=== PATIENT | female | born 1975 ===

== ENCOUNTER 2022-04-26 16:46 | Inpatient (IN) | payer SELFPAY ==
[~2022-04-26] VITALS: Ht 145 cm; Wt 50.0 kg
--- NOTE | 2022-04-26 17:26 | ED General ---
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 She denies cough, vomiting, or shortness of breath. She presented to the [facility] where she had flu and COVID testing performed. These tests were reportedly negative. She was then referred to the emergency room. She is noted to be tachycardic with a heart rate in the 120s and febrile with a temperature of 38.6 on initial exam. She is Icelandic-speaking only and requires lang interpreter services. (NEETU DRIVER MD) Allergies and Home Medications Allergies Coded Allergies: No Known Drug Allergies (Unverified , 04/26/22) Patient Home Medication List Home Medication List Reviewed: Yes (NEETU DRIVER MD) Home Medication List Reviewed: Yes (ROLANDO SHER DO) Review of Systems Review of Systems Constitutional: see HPI EENTM: no symptoms reported Respiratory: see HPI Cardiovascular: see HPI Gastrointestinal: see HPI Genitourinary: no symptoms reported : No Musculoskeletal: no symptoms reported Skin: no symptoms reported Psychiatric/Neurological: No Symptoms Reported Hematologic/Lymphatic: No Symptoms Reported Immunological/Allergic: no symptoms reported (NEETU DRIVER MD) Past Azwxckg-Wculfw-Bfyhzc Hx Patient Social History Tobacco Use?: No Substance use?: No Alcohol Use?: Yes Alcohol type: Beer Alcohol Frequency: Once in a while (NEETU DRIVER MD) Immunizations Up To Date First/Initial COVID19 Vaccinat: UNKNOWN 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 (NEETU DRIVER MD) Past Medical History Surgeries: Yes Orthopedic (Hand/arm), Tubal Ligation Respiratory: No Cardiac: No Neurological: No : No Last Menstrual Period: Apr 18, 2022 Reproductive Disorders: No Genitourinary: No Gastrointestinal: No Musculoskeletal: No Endocrine: Yes Hypothyroidsim HEENT: No Cancer: No Psychosocial: No Integumentary: No (NEETU DRIVER MD) Physical Exam Vital Signs Vital Signs - First Documented 04/26/22 17:00 Temp 38.6 Pulse 123 Resp 16 B/P (MAP) 125/82 (96) Pulse Ox 97 O2 Delivery Room Air (ROLANDO SHER DO) Vital Signs Capillary Refill : Less Than 3 Seconds (NEETU DRIVER MD) Height, Weight, BMI Height: '" Weight: lbs. oz. kg; 22.00 BMI Method: General Appearance: No Apparent Distress, WD/WN HEENT: Normal ENT Inspection, Pharynx Normal Neck: Normal Inspection; No JVD Respiratory: Lungs Clear, Normal Breath Sounds, No Accessory Muscle Use Cardiovascular: No Edema, No Murmur, Tachycardia Gastrointestinal: Normal Bowel Sounds, Soft; No Distended; Tenderness (Mild, generalized) Extremity: Normal Inspection, No Pedal Edema Neurologic/Psychiatric: Alert, Oriented x3, No Motor/Sensory Deficits, Normal Mood/Affect, emergency doctor II-XII Norm as Tested Skin: Normal Color, Warm/Dry (NEETU DRIVER MD) Focused Exam Sepsis Stage: Sepsis Possible Source: Other ( AND GI) Lactate Level 04/26/22 17:36: Lactic Acid Level 1.33 (ROLANDO SHER DO) Time of Focused Exam: 19:45 Respiratory: Normal Breath Sounds, No Accessory Muscle Use, No Respiratory Distress Cardiovascular: Tachycardia Capillary Refill: Less Than 3 Seconds Skin: normal color (PT IS ) Lactic Acid Level Laboratory Tests Test 04/26/22 17:36 Lactic Acid Level 1.33 MMOL/L (0.50-2.00) (ROLANDO SHER DO) Within 3hrs of presentation: Admin fluids, Admin ABX, Blood cultures prior to ABX's, Focus exam, Lactate level (ROLANDO SHER DO) Progress/Results/Core Measures Suspected Sepsis SIRS Temperature: Pulse: 123 Respiratory Rate: 16 Laboratory Tests 04/26/22 17:36: White Blood Count 11.5H Blood Pressure 125 /82 Mean: 96 04/26/22 17:36: Lactic Acid Level 1.33 Laboratory Tests 04/26/22 17:36: Creatinine 0.79, INR Comment 1.1, Platelet Count 186, Total Bilirubin 0.5 (NEETU DRIVER MD) Results/Orders Lab Results Laboratory Tests Test 04/26/22 17:24 04/26/22 17:36 04/26/22 17:42 Range/Units Influenza Type A (RT-PCR) Not Detected Not Detecte Influenza Type B (RT-PCR) Not Detected Not Detecte SARS-CoV-2 RNA (RT-PCR) Not Detected Not Detecte White Blood Count 11.5 H 4.3-11.0 10^3/uL Red Blood Count 4.79 3.80-5.11 10^6/uL Hemoglobin 14.5 11.5-16.0 g/dL Hematocrit 42 35-52 % Mean Corpuscular Volume 88 80-99 fL Mean Corpuscular Hemoglobin 30 25-34 pg Mean Corpuscular Hemoglobin Concent 35 32-36 g/dL Red Cell Distribution Width 12.7 10.0-14.5 % Platelet Count 186 130-400 10^3/uL Mean Platelet Volume 11.0 9.0-12.2 fL Immature Granulocyte % (Auto) 1 % Neutrophils (%) (Auto) 91 H 42-75 % Lymphocytes (%) (Auto) 5 L 12-44 % Monocytes (%) (Auto) 3 0-12 % Eosinophils (%) (Auto) 0 0-10 % Basophils (%) (Auto) 0 0-10 % Neutrophils # (Auto) 10.4 H 1.8-7.8 10^3/uL Lymphocytes # (Auto) 0.6 L 1.0-4.0 10^3/uL Monocytes # (Auto) 0.4 0.0-1.0 10^3/uL Eosinophils # (Auto) 0.0 0.0-0.3 10^3/uL Basophils # (Auto) 0.0 0.0-0.1 10^3/uL Immature Granulocyte # (Auto) 0.1 0.0-0.1 10^3/uL Neutrophils % (Manual) 88 % Lymphocytes % (Manual) 4 % Monocytes % (Manual) 3 % Eosinophils % (Manual) 0 % Basophils % (Manual) 0 % Band Neutrophils 5 % Blood Morphology Comment NORMAL Prothrombin Time 14.3 12.2-14.7 SEC INR Comment 1.1 0.8-1.4 Activated Partial Thromboplast Time 31 24-35 SEC Sodium Level 130 L 135-145 MMOL/L Potassium Level 3.0 L 3.6-5.0 MMOL/L Chloride Level 97 L 98-107 MMOL/L Carbon Dioxide Level 21 21-32 MMOL/L Anion Gap 12 5-14 MMOL/L Blood Urea Nitrogen 6 L 7-18 MG/DL Creatinine 0.79 0.60-1.30 MG/DL Estimat Glomerular Filtration Rate 92 BUN/Creatinine Ratio 8 Glucose Level 103 70-105 MG/DL Lactic Acid Level 1.33 0.50-2.00 MMOL/L Calcium Level 9.3 8.5-10.1 MG/DL Corrected Calcium 9.0 8.5-10.1 MG/DL Magnesium Level 1.9 1.6-2.4 MG/DL Total Bilirubin 0.5 0.1-1.0 MG/DL Aspartate Amino Transf (AST/SGOT) 22 5-34 U/L Alanine Aminotransferase (ALT/SGPT) 18 0-55 U/L Alkaline Phosphatase 96 40-136 U/L C-Reactive Protein High Sensitivity 17.17 H 0.00-0.50 MG/DL Total Protein 8.1 6.4-8.2 GM/DL Albumin 4.4 3.2-4.5 GM/DL Lipase 9 8-78 U/L Urine Color YELLOW Urine Clarity CLOUDY Urine pH 7.0 5-9 Urine Specific [place] 1.015 L 1.016-1.022 Urine Protein TRACE H NEGATIVE Urine Glucose (UA) NEGATIVE NEGATIVE Urine Ketones 1+ H NEGATIVE Urine Nitrite POSITIVE H NEGATIVE Urine Bilirubin NEGATIVE NEGATIVE Urine Urobilinogen 0.2 < = 1.0 MG/DL Urine Leukocyte Esterase 1+ H NEGATIVE Urine RBC (Auto) 1+ H NEGATIVE Urine RBC RARE /HPF Urine WBC 10-25 H /HPF Urine Squamous Epithelial Cells 0-2 /HPF Urine Crystals NONE /LPF Urine Bacteria LARGE H /HPF Urine Casts NONE /LPF Urine Mucus NEGATIVE /LPF Urine Culture Indicated YES (ROLANDO SHER DO) My Orders Orders - ROLANDO SHER DO Acetaminophen Tablet (Tylenol Tablet) (04/26/22 19:45) Ibuprofen Tablet (Motrin Tablet) (04/26/22 19:45) Ed Admission (Communication) (04/26/22 19:51) (ROLANDO SHER DO) Medications Given in ED Current Medications Medications Dose Ordered Sig/Bhumi Route Start Time Stop Time Status Last Admin Dose Admin Acetaminophen 1,000 mg ONCE ONCE PO 04/26/22 19:45 04/26/22 19:46 DC 04/26/22 19:38 1,000 MG Fentanyl Citrate 50 mcg ONCE ONCE IVP 04/26/22 17:30 04/26/22 17:31 DC 04/26/22 17:56 50 MCG Hyoscyamine Sulfate 0.25 mg ONCE ONCE SL 04/26/22 17:30 04/26/22 17:31 DC 04/26/22 17:55 0.25 MG Ibuprofen 800 mg ONCE ONCE PO 04/26/22 19:45 04/26/22 19:46 DC 04/26/22 19:38 800 MG Iohexol 100 ml ONCE ONCE IV 04/26/22 19:15 04/26/22 19:16 DC 04/26/22 19:30 49 ML Lactated Ringer's 1,000 ml @ 0 mls/hr Q0M ONCE IV 04/26/22 17:30 04/26/22 17:31 DC 04/26/22 17:55 1,000 MLS/HR Potassium Chloride 50 ml @ 50 mls/hr ONCE ONCE IV 04/26/22 19:15 04/26/22 20:14 DC 04/26/22 19:29 50 MLS/HR Sodium Chloride 100 ml ONCE ONCE IV 04/26/22 19:15 04/26/22 19:16 DC 04/26/22 19:30 80 ML (ROLANDO SHER DO) Vital Signs/I&O 04/26/22 04/26/22 04/26/22 17:00 19:38 19:38 Temp 38.6 38.6 38.6 Pulse 123 Resp 16 B/P (MAP) 125/82 (96) Pulse Ox 97 O2 Delivery Room Air 04/27/22 00:00 Intake Total 1050 ml Balance 1050 ml (ROLANDO SHER DO) Vital Signs/I&O Capillary Refill : Less Than 3 Seconds (NEETU DRIVER MD) Blood Pressure Mean: 96 Progress Note #1: Time: 18:39 Progress Note Patient was interviewed and examined with the assistance of the lang interpreter. She is being hydrated with IV fluids. We are confirming the viral swabs with repeats here. Pain is being treated with fentanyl. Levsin was given for the cramping. Work-up with CBC, CMP, and urinalysis reveals leukocytosis, elevated CRP, and pyuria. Patient likely has pyelonephritis. I intend to obtain a CT of the abdomen and pelvis after the viral swabs are confirmed to ensure there is no obstructive uropathy contributing to the pyelonephritis. Progress Note #2: Time: 19:15 Progress Note Patient is agreeable to CT scan. Plan is to admit at [facility] for treatment of sepsis and pyelonephritis as long as there are no uropathy's that require transfer to urology services. Patient is still having some residual pain and would like further treatment. Morphine 4 mg IV was ordered. Potassium replacement will be provided via IV route along with a liter of normal saline. Plan was explained to patient and family using the lang interpreter services. Care is now being transitioned to Dr. SHER. (NEETU DRIVER MD) Progress Note : Progress Note 191--ASSUMED CARE OF PT FROM DR. DRIVER AT SHIFT CHANGE. CT IS PENDING. PT HAS HAD PAIN MEDICATION, AND IV ANTIBIOTICS TYLENOL AND MOTRIN WERE GIVEN FOR FEVER OF 101.4 ADDITIONAL IV FLUIDS ORDERED. REVIEWED TEST RESULTS AND NEED FOR ADMIT WITH PT. NO DETERIORATION IN PT'S CONDITION DURING ER STAY. VITALS STABLE AT TIME OF ADMIT. BP > 100 SYSTOLIC, HR REMAINS AROUND 120. O2 SATS 100% ON ROOM AIR. SEPSIS PROTOCOL HAS BEEN INITIATED AND FOCUS EXAM HAS BEEN DONE. PT HAS NOT HAD ANY PRIOR VISITS HERE. (ROLANDO SHER DO) Diagnostic Imaging Comments CT ABDOMEN/PELVIS--PER RADIOLOGIST REPORT AT 1946 FINDINGS: There is partly formed and partly liquid stools in the colon diffusely. There is thickening of the langley of the colon diffusely. There is no sigmoidal thickening. There is very mild pericolonic stranding adjacent to the thickened segments consistent with nonspecific colitis. No perforation or overt bowel obstruction. No pneumatosis. No free gas. There is likely uterine fibroid disease at its fundus. No acute adnexal abnormality. Liver, gallbladder, bile ducts, spleen, adrenals, pancreas and unobstructed kidneys are normal. IMPRESSION: 1. Pancolitis without obstruction, perforation or abscess. Unremarkable small bowel. 2. Unobstructed urinary tracts with no hepatobiliary abnormality. 3. Probable uterine fibroids with no acute adnexal or urinary bladder pathology. 4. No findings to suggest pyelonephritis or other acute urinary tract pathology. (ROLANDO SHER DO) Departure Communication (Admissions) 1947--SPOKE WITH DR. MENDES, HOSPITALIST FOR [facility]. ACCEPTS PT FOR ADMIT. SHE WILL DO ADMIT ORDERS. WILL CONSULT DR. KIRBY. 1953--SPOKE WITH DR. KIRBY, SURGEON, AND INFORMED HIM OF CONSULT. (ROLANDO SHER DO) Impression Primary Impression: Sepsis Qualified Codes: A41.9 - Sepsis, unspecified organism Additional Impressions: Pyelonephritis Abdominal pain Qualified Codes: R10.84 - Generalized abdominal pain Hypokalemia Colitis Hyponatremia Disposition: ADMITTED INPATIENT Condition: Stable Admissions Decision to Admit Reason: Admit from ER (General) Decision to Admit/Date: Apr 26, 2022 (NEETU DRIVER MD) Time/Decision to Admit Time: 19:50 (ROLANDO SHER DO) Departure-Patient Inst. Referrals: [facility] (PCP/Family) Primary Care Physician NEETU DRIVER MD Apr 26, 2022 17:26 ROLANDO SHER DO Apr 26, 2022 19:31
[2022-04-26] MEDS ORDERED: LACTATED RINGERS 1,000 ML IV ONE ×2 (17:30→20:30)
[2022-04-26] MEDS ORDERED: HYOSCYAMINE 0.125 MG (LEVSIN) TAB SL ONE (17:30)
[2022-04-26] MEDS ORDERED: fentaNYL INJ 100 MCG/2 ML AMP IVP ONE (17:30)
[2022-04-26 17:44] LABS: BASOPHILS % (AUTO) 0 % (0-10); EOSINOPHILS % (AUTO) 0 % (0-10); HEMATOCRIT 42 % (35-52); HEMOGLOBIN 14.5 g/dL (11.5-16.0); LYMPHOCYTES # (AUTO) 0.6 10^3/uL (1.0-4.0); LYMPHOCYTES % (AUTO) 5 % (12-44); MEAN CORPUSCULAR HEMOGLOBIN 30 pg (25-34); MEAN CORPUSCULAR HGB CONC 35 g/dL (32-36); MEAN CORPUSCULAR VOLUME 88 fL (80-99); MONOCYTES # (AUTO) 0.4 10^3/uL (0.0-1.0); MONOCYTES % (AUTO) 3 % (0-12); NEUTROPHILS # (AUTO) 10.4 10^3/uL (1.8-7.8); NEUTROPHILS % (AUTO) 91 % (42-75); PLATELET COUNT 186 10^3/uL (130-400); WHITE BLOOD COUNT 11.5 10^3/uL (4.3-11.0)
[2022-04-26 17:47] LABS: BILIRUBIN,URINE NEGATIVE (NEGATIVE); CLARITY,URINE CLOUDY; COLOR,URINE YELLOW; GLUCOSE, URINE (UA) NEGATIVE (NEGATIVE); KETONES,URINE 1+ (NEGATIVE); LEUKOCYTE ESTERASE ,URINE 1+ (NEGATIVE); NITRITE,URINE POSITIVE (NEGATIVE); PROTEIN,URINE TRACE (NEGATIVE)
[2022-04-26 17:54] LABS: BACTERIA,URINE LARGE /HPF; RBC,URINE RARE /HPF; SQUAMOUS EPITHELIAL CELL,UR 0-2 /HPF
[2022-04-26 17:56] LABS: ALBUMIN 4.4 GM/DL (3.2-4.5)
[2022-04-26 17:58] LABS: CALCIUM 9.3 MG/DL (8.5-10.1)
[2022-04-26 17:59] LABS: BAND NEUTROPHILS 5 %; BASOPHILS % (MANUAL) 0 %; EOSINOPHILS % (MANUAL) 0 %; LYMPHOCYTES % (MANUAL) 4 %; MONOCYTES % (MANUAL) 3 %; NEUTROPHILS % (MANUAL) 88 %; RBC MORPH NORMAL; TOTAL PROTEIN 8.1 GM/DL (6.4-8.2)
[2022-04-26 18:01] LABS: BILIRUBIN,TOTAL 0.5 MG/DL (0.1-1.0)
[2022-04-26 18:03] LABS: CREATININE SERUM 0.79 MG/DL (0.60-1.30)
[2022-04-26 18:05] LABS: MAGNESIUM 1.9 MG/DL (1.6-2.4)
[2022-04-26] MEDS ORDERED: cefTRIAXone 1 GM PRE-MIX 50 ML IV STA (18:18)
[2022-04-26 18:33] LABS: INR 1.1 (0.8-1.4); PROTHROMBIN TIME PATIENT 14.3 SEC (12.2-14.7)
--- NOTE | 2022-04-26 18:52 | Diagnostic Imaging Report ---
INDICATION: Chest pain. COMPARISON: None. FINDINGS: The lungs are clear. No failure, effusion or pneumothorax. IMPRESSION: Negative. Dictated by: Dictated on workstation # [id number]
[2022-04-26] MEDS ORDERED: morphine INJ 10 MG/ML 1ML (SYR OR VIAL) IVP STA (19:12)
[2022-04-26] MEDS ORDERED: POTASSIUM CL 10MEQ/50ML IVPB 50 ML IV ONE (19:15)
[2022-04-26] MEDS ORDERED: IOHEXOL 350 MG/ML 100 ML (OMNIPAQUE 350) VIAL IV ONE (19:15)
[2022-04-26] MEDS ORDERED: NS IV 1000 ML 1,000 ML IV SCH (19:15)
[2022-04-26] MEDS ORDERED: HOLD METFORMIN - RECEIVED CONTRAST 20 ML VIAL IV SCH (19:15)
[2022-04-26] MEDS ORDERED: NS 100 ML (IVPB) BAG IV ONE (19:15)
--- NOTE | 2022-04-26 19:43 | Diagnostic Imaging Report ---
PROCEDURE: CT abdomen and pelvis with contrast. TECHNIQUE: Multiple contiguous axial images were obtained through the abdomen and pelvis after administration of intravenous contrast. Auto Exposure Controls were utilized during the CT exam to meet ALARA standards for radiation dose reduction. All CT scans use one or more of the following dose optimizing techniques: automated exposure control, MA and/or KvP adjustment based on patient size and exam type or iterative reconstruction. INDICATION: Fever, diarrhea, back pain, headache. COMPARISON: None. FINDINGS: There is partly formed and partly liquid stools in the colon diffusely. There is thickening of the langley of the colon diffusely. There is no sigmoidal thickening. There is very mild pericolonic stranding adjacent to the thickened segments consistent with nonspecific colitis. No perforation or overt bowel obstruction. No pneumatosis. No free gas. There is likely uterine fibroid disease at its fundus. No acute adnexal abnormality. Liver, gallbladder, bile ducts, spleen, adrenals, pancreas and unobstructed kidneys are normal. IMPRESSION: 1. Pancolitis without obstruction, perforation or abscess. Unremarkable small bowel. 2. Unobstructed urinary tracts with no hepatobiliary abnormality. 3. Probable uterine fibroids with no acute adnexal or urinary bladder pathology. 4. No findings to suggest pyelonephritis or other acute urinary tract pathology. Dictated on workstation # [id number]
[2022-04-26] MEDS ORDERED: ACETAMINOPHEN 500 MG TAB (TYLENOL) PO ONE (19:45)
[2022-04-26] MEDS ORDERED: IBUPROFEN 800 MG (MOTRIN) TAB PO ONE (19:45)
[2022-04-26 21:08] VITALS: BP 98/55
[2022-04-26] MEDS ORDERED: LACTULOSE SYRUP 10GM/15ML (ENULOSE) 30ML UDC PO PRN (21:15)
[2022-04-26] MEDS ORDERED: HYDROmorphone 2 MG/ML VIAL (DILAUDID) IV PRN (21:15)
[2022-04-26] MEDS ORDERED: polyethylene glycoL POWDER 17 GM (MIRALAX) PACK PO PRN (21:15)
[2022-04-26] MEDS ORDERED: LORazepam INJ 2 MG/ML (ATIVAN) VIAL IVP PRN (21:15)
[2022-04-26] MEDS ORDERED: CALCIUM CARBONATE 500 MG (TUMS) TAB.CHEW PO PRN (21:15)
[2022-04-26] MEDS ORDERED: ACETAMINOPHEN 325 MG TABLET PO PRN (21:15)
[2022-04-26] MEDS ORDERED: KETOROLAC 15 MG/ML VIAL IV PRN (21:15)
[2022-04-26] MEDS ORDERED: LORazepam 0.5 MG (ATIVAN) TABLET PO PRN (21:15)
[2022-04-26] MEDS ORDERED: diphenhydrAMINE 50 MG/ML INJ (BENADRYL) IVP PRN (21:15)
[2022-04-26] MEDS ORDERED: diphenhydrAMINE 25 MG TAB (BENADRYL) PO PRN (21:15)
[2022-04-26] MEDS ORDERED: BISACODYL 10 MG SUPP (DULCOLAX) PR PRN (21:15)
[2022-04-26] MEDS ORDERED: ANTACID SUSP 30 ML UDC (MYLANTA) PO PRN (21:15)
[2022-04-26] MEDS ORDERED: ONDANSETRON 4 MG/2 ML (SDV) Z0FRAN IV PRN (21:15)
[2022-04-26] MEDS ORDERED: MELATONIN 3 MG TABLET PO PRN (21:15)
[2022-04-26] MEDS ORDERED: ONDANSETRON 4 MG (ZOFRAN) ORAL DISSOLVE TAB PO PRN (21:15)
[2022-04-26] MEDS ORDERED: MILK OF MAGNESIA 400 MG/5 ML 30 ML UDC PO PRN (21:15)
[2022-04-26 21:26] VITALS: BP 125/82
[2022-04-26] MEDS: IBUPROFEN 600 MG (MOTRIN) TAB PO SCH (22:01)
[2022-04-26] MEDS: NS W/KCL 20 MEQ/L 1,000 ML IV SCH (22:05)
[2022-04-26] MEDS: metroNIDAZOLE 500MG/100ML IVPB 100 ML IV SCH (22:05)
[2022-04-26] MEDS: ENOXAPARIN 40 MG/0.4 ML (LOVENOX) SYR SC SCH (22:05)
[2022-04-26 22:11] VITALS: BP 98/58
[2022-04-26 23:40] VITALS: BP 90/50
[2022-04-27] VITALS (7 sets, daily range): BP systolic 89–104; BP diastolic 52–59
[2022-04-27] MEDS: NS W/KCL 20 MEQ/L 1,000 ML IV SCH ×3 (02:11→21:08)
[2022-04-27] MEDS: IBUPROFEN 600 MG (MOTRIN) TAB PO SCH ×4 (03:04→21:02)
[2022-04-27] MEDS: metroNIDAZOLE 500MG/100ML IVPB 100 ML IV SCH ×3 (05:07→21:01)
[2022-04-27 05:55] LABS: BASOPHILS % (AUTO) 0 % (0-10); EOSINOPHILS % (AUTO) 0 % (0-10); HEMATOCRIT 35 % (35-52); HEMOGLOBIN 11.6 g/dL (11.5-16.0); LYMPHOCYTES # (AUTO) 0.6 10^3/uL (1.0-4.0); LYMPHOCYTES % (AUTO) 7 % (12-44); MEAN CORPUSCULAR HEMOGLOBIN 30 pg (25-34); MEAN CORPUSCULAR HGB CONC 33 g/dL (32-36); MEAN CORPUSCULAR VOLUME 91 fL (80-99); MONOCYTES # (AUTO) 0.3 10^3/uL (0.0-1.0); MONOCYTES % (AUTO) 4 % (0-12); NEUTROPHILS # (AUTO) 7.5 10^3/uL (1.8-7.8); NEUTROPHILS % (AUTO) 89 % (42-75); PLATELET COUNT 135 10^3/uL (130-400); WHITE BLOOD COUNT 8.5 10^3/uL (4.3-11.0)
[2022-04-27 06:18] LABS: BILIRUBIN,TOTAL 0.3 MG/DL (0.1-1.0); CALCIUM 7.7 MG/DL (8.5-10.1); CREATININE SERUM 0.6 MG/DL (0.60-1.30); POTASSIUM 3.6 MMOL/L (3.6-5.0); TOTAL PROTEIN 5.8 GM/DL (6.4-8.2)
--- NOTE | 2022-04-27 06:30 | History & Physical-Hospitalist ---
History of Present Illness HPI/Chief Complaint Chief complaint: UTI with abdominal pain HPI: This is a 46-year-old female who speaks only Ecuadorean and I communicate via medical Ecuadorean who presented to the ER with fever and abdominal pain found to have colitis on CT scan but no bowel changes only fever and nausea. She was diagnosed with sepsis placed on IV fluids and Dr. Cruz was consulted. Patient reports pain but no nausea at this current time and her white blood cell count is normal. Source: patient Exam Limitations: no limitations Date Seen 04/27/22 Time Seen by a Provider: 11:00 Attending Physician [facility] PCP Admitting Physician: Pam Mcguire DO Attending Physician: Pam Mcguire DO Referring Physician Date of Admission Apr 26, 2022 at 19:51 Home Medications & Allergies Home Medications Reviewed patient Home Medication Reconciliation performed by pharmacy medication reconciliations information technology technician and/or nursing. Patients Allergies have been reviewed. Allergies Allergies Coded Allergies No Known Drug Allergies (Unverified04/26/22) Past Lyqlqxa-Wmoxwd-[place] Hx Patient Social History Marrital Status: single Employed/Student: unemployed Tobacco Use?: No Smoking Status: Never a Smoker Use of E-Cig and/or Vaping dev: No Substance use?: No Alcohol Use?: No Alcohol type: Beer Alcohol Frequency: Once in a while Pt feels they are or have been: No Immunizations Up To Date Date of Influenza Vaccine: Jan 28, 2022 First/Initial COVID19 Vaccinat: UNKNOWN Current Status status: No Advance Directives: No Communicates: Verbally Primary Language: Ecuadorean Preferred Spoken Language: Ecuadorean Implanted or Applied Medical D: None Past Medical History Surgeries: Orthopedic (Hand/arm), Tubal Ligation Hypothyroidsim Review of Systems Constitutional: see HPI, dizziness, malaise, weakness Gastrointestinal: abdominal pain, nausea, vomiting Physical Exam Physical Exam Vital Signs Vital Signs - First Documented 04/26/22 04/26/22 17:00 21:26 Temp 38.6 Pulse 123 Resp 16 B/P (MAP) 125/82 (96) Pulse Ox 97 O2 Delivery Room Air FiO2 21 Capillary Refill : Less Than 3 Seconds Height, Weight, BMI Height: '" Weight: lbs. oz. kg; 23.78 BMI Method: General Appearance: No Apparent Distress, Anxious Eyes: Right Eye Normal Inspection, Right Eye PERRL HEENT: PERRL/EOMI, Normal ENT Inspection, Pharynx Normal, Moist Mucous Membranes Neck: Full Range of Motion, Normal Inspection, Non Tender Respiratory: Chest Non Tender, Lungs Clear, Normal Breath Sounds, No Accessory Muscle Use, No Respiratory Distress Cardiovascular: Regular Rate, Rhythm, No Edema, No Gallop, No JVD, No Murmur, Normal Peripheral Pulses Gastrointestinal: Normal Bowel Sounds, No Organomegaly, No Pulsatile Mass, Non Tender, Soft Back: Normal Inspection, No CVA Tenderness, No Vertebral Tenderness Extremity: Normal Capillary Refill, Normal Inspection, Normal Range of Motion, Non Tender, No Calf Tenderness, No Pedal Edema Neurologic/Psychiatric: Alert, Oriented x3, No Motor/Sensory Deficits, Normal Mood/Affect Skin: Normal Color, Warm/Dry Lymphatic: No Adenopathy Results Results/Procedures Labs Laboratory Tests 04/26/22 17:36 04/27/22 05:12 Patient resulted labs reviewed. Assessment/Plan Admission Diagnosis Assessment: Sepsis Pyelonephritis Colitis on CT consulted Dr. Cruz Abdominal pain Hypokalemia Plan: Pain control IV antibiotics Admission Status: Observation PAM MCGUIRE DO Apr 27, 2022 06:30
[2022-04-27] MEDS: PANTOPRAZOLE 40 MG (PROTONIX) VIAL IV SCH (08:34)
[2022-04-27] MEDS: DOCUSATE SODIUM 100 MG (COLACE) CAP PO SCH ×2 (09:00→21:02)
[2022-04-27] MEDS: SENNOSIDES 8.6 MG (SENOKOT) TAB PO SCH ×2 (10:03→21:01)
--- NOTE | 2022-04-27 13:56 | Consultation - Surgery ---
History of Present Illness History of Present Illness Patient Consulted On(margaret/time) 04/27/22 13:47 Time Seen by Provider: 10:40 History of Present Illness Surgery asked to consult regarding abdominal pain, possible pancolitis. HPI per ED: This 46-year-old woman presents to the emergency room with complaints of abdominal pain, chest discomfort, back pain, fever, diarrhea, and intense headache since yesterday evening. She denies cough, vomiting, or shortness of breath. She presented to the [facility] where she had flu and COVID testing performed. These tests were reportedly negative. She was then referred to the emergency room. She is noted to be tachycardic with a heart rate in the 120s and febrile with a temperature of 38.6 on initial exam. She is Ukrainian-speaking only and requires sign language interpreter services. When I spoke to the pt this am I had her daughter translating (she is in the medical field). Pt has never had pain like this before, she states the pain in her abdomen is really not any better. She just finished menses a day or so ago. She had some diarrhea, but denied hematochezia or melena. She rated the pain as 5 out of 10 today, at its worst it was an 8 out of 10. She stated nothing made this pain better or worse. She did have a headache and she states that is better. She also reports some hematochezia. Allergies and Home Medications Allergies Coded Allergies: No Known Drug Allergies (Unverified , 04/26/22) Patient Home Medication List Home Medication List Reviewed: Yes Past [id number]-[id number] Hx Patient Social History Smoking Status: Never a Smoker Alcohol Use?: No Have you traveled recently?: No Immunizations Up To Date Date of Influenza Vaccine: Jan 28, 2022 Surgeries History of Surgeries: Yes Surgeries: Orthopedic (Hand/arm), Tubal Ligation Respiratory History of Respiratory Disorde: No Cardiovascular History of Cardiac Disorders: No Neurological History of Neurological Disord: No Reproductive System : No Hx Reproductive Disorders: No Genitourinary History of Genitourinary Disor: No Gastrointestinal History of Gastrointestinal Di: No Musculoskeletal History of Musculoskeletal Dis: No Endocrine History of Endocrine Disorders: Yes Endocrine Disorders: Hypothyroidsim HEENT History of HEENT Disorders: No Cancer History of Cancer: No Psychosocial History of Psychiatric Problem: No Integumentary History of Skin or Integumenta: No Family Medical History Significant Family History: Diabetes (mother ), Hypertension (mother and father) Review of Systems-General Constitutional: No chills, No diaphoresis; malaise EENTM: No blurred vision, No mouth swelling, No epistaxis Respiratory: No cough, No dyspnea on exertion Cardiovascular: No chest pain, No edema, No palpitations Gastrointestinal: abdominal pain, diarrhea; No hematemesis, No jaundice; loss of appetite, nausea, vomiting Genitourinary: dysuria, frequency, hematuria Musculoskeletal: back pain, joint pain, joint swelling, muscle stiffness Skin: No change in color, No change in hair/nails Psychiatric/Neurological: Denies Anxiety, Denies Seizure, Denies Tremors Physical Exam-General Problems Physical Exam Vital Signs Vital Signs - First Documented 04/26/22 04/26/22 17:00 21:26 Temp 38.6 Pulse 123 Resp 16 B/P (MAP) 125/82 (96) Pulse Ox 97 O2 Delivery Room Air FiO2 21 Capillary Refill : Less Than 3 Seconds General Appearance: WD/WN, mild distress (secondary to pain) Eyes: Bilateral Eye PERRL, Bilateral Eye EOMI HEENT: pharynx normal; No scleral icterus (R), No scleral icterus (L) Neck: non-tender, supple Respiratory: chest non-tender, lungs clear, normal breath sounds, no respiratory distress, no accessory muscle use Cardiovascular: regular rate, rhythm, no murmur Gastrointestinal: soft, no organomegaly; No distended, No guarding; tenderness (to palpation, mostly lower abdomen), hernia (umbilical ) Rectal: deferred Back: no CVA tenderness, no vertebral tenderness Extremities: no pedal edema, no calf tenderness Neurologic/Psychiatric: crystal report developer II-XII nml as tested, no motor/sensory deficits, alert, normal mood/affect, oriented x 3 Skin: normal color, warm/dry Lymphatic: no adenopathy (neck, axilla or groin) Data Review Labs Laboratory Tests 04/26/22 17:24: Influenza Type A (RT-PCR) Not Detected, Influenza Type B (RT-PCR) Not Detected, SARS-CoV-2 RNA (RT-PCR) Not Detected 04/26/22 17:36: White Blood Count 11.5H, Red Blood Count 4.79, Hemoglobin 14.5, Hematocrit 42, Mean Corpuscular Volume 88, Mean Corpuscular Hemoglobin 30, Mean Corpuscular Hemoglobin Concent 35, Red Cell Distribution Width 12.7, Platelet Count 186, Mean Platelet Volume 11.0, Immature Granulocyte % (Auto) 1, Neutrophils (%) (Auto) 91H, Lymphocytes (%) (Auto) 5L, Monocytes (%) (Auto) 3, Eosinophils (%) (Auto) 0, Basophils (%) (Auto) 0, Neutrophils # (Auto) 10.4H, Lymphocytes # (Auto) 0.6L, Monocytes # (Auto) 0.4, Eosinophils # (Auto) 0.0, Basophils # (Auto) 0.0, Immature Granulocyte # (Auto) 0.1, Neutrophils % (Manual) 88, Lymphocytes % (Manual) 4, Monocytes % (Manual) 3, Eosinophils % (Manual) 0, Basophils % (Manual) 0, Band Neutrophils 5, Blood Morphology Comment NORMAL, Prothrombin Time 14.3, INR Comment 1.1, Activated Partial Thromboplast Time 31, Sodium Level 130L, Potassium Level 3.0L, Chloride Level 97L, Carbon Dioxide Level 21, Anion Gap 12, Blood Urea Nitrogen 6L, Creatinine 0.79, Estimat Glomerular Filtration Rate 92, BUN/Creatinine Ratio 8, Glucose Level 103, Lactic Acid Level 1.33, Calcium Level 9.3, Corrected Calcium 9.0, Magnesium Level 1.9, Total Bilirubin 0.5, Aspartate Amino Transf (AST/SGOT) 22, Alanine Aminotransferase (ALT/SGPT) 18, Alkaline Phosphatase 96, C-Reactive Protein High Sensitivity 17.17H, Total Protein 8.1, Albumin 4.4, Lipase 9 04/26/22 17:42: Urine Color YELLOW, Urine Clarity CLOUDY, Urine pH 7.0, Urine Specific [place] 1.015L, Urine Protein TRACEH, Urine Glucose (UA) NEGATIVE, Urine Ketones 1+H, Urine Nitrite POSITIVEH, Urine Bilirubin NEGATIVE, Urine Urobilinogen 0.2, Urine Leukocyte Esterase 1+H, Urine RBC (Auto) 1+H, Urine RBC RARE, Urine WBC 10-25H, Urine Squamous Epithelial Cells 0-2, Urine Crystals NONE, Urine Bacteria LARGEH, Urine Casts NONE, Urine Mucus NEGATIVE, Urine Culture Indicated YES 04/27/22 05:12: White Blood Count 8.5, Red Blood Count 3.85, Hemoglobin 11.6, Hematocrit 35, Me an Corpuscular Volume 91, Mean Corpuscular Hemoglobin 30, Mean Corpuscular Hemoglobin Concent 33, Red Cell Distribution Width 13.2, Platelet Count 135, Mean Platelet Volume 12.0, Immature Granulocyte % (Auto) 0, Neutrophils (%) (Auto) 89H, Lymphocytes (%) (Auto) 7L, Monocytes (%) (Auto) 4, Eosinophils (%) (Auto) 0, Basophils (%) (Auto) 0, Neutrophils # (Auto) 7.5, Lymphocytes # (Auto) 0.6L, Monocytes # (Auto) 0.3, Eosinophils # (Auto) 0.0, Basophils # (Auto) 0.0, Immature Granulocyte # (Auto) 0.0, Sodium Level 137, Potassium Level 3.6, Chloride Level 108H, Carbon Dioxide Level 19L, Anion Gap 10, Blood Urea Nitrogen 5L, Creatinine 0.60, Estimat Glomerular Filtration Rate 111, BUN/Creatinine Ratio 8, Glucose Level 93, Calcium Level 7.7L, Corrected Calcium 8.5, Total Bilirubin 0.3, Aspartate Amino Transf (AST/SGOT) 20, Alanine Aminotransferase (ALT/SGPT) 15, Alkaline Phosphatase 69, Total Protein 5.8L, Albumin 3.0L Microbiology 04/26/22 Urine Culture - Preliminary, Resulted Escherichia coli Radiology Date of Exam:04/26/22 CT ABDOMEN/PELVIS W PROCEDURE: CT abdomen and pelvis with contrast. TECHNIQUE: Multiple contiguous axial images were obtained through the abdomen and pelvis after administration of intravenous contrast. Auto Exposure Controls were utilized during the CT exam to meet ALARA standards for radiation dose reduction. All CT scans use one or more of the following dose optimizing techniques: automated exposure control, MA and/or KvP adjustment based on patient size and exam type or iterative reconstruction. INDICATION: Fever, diarrhea, back pain, headache. COMPARISON: None. FINDINGS: There is partly formed and partly liquid stools in the colon diffusely. There is thickening of the langley of the colon diffusely. There is no sigmoidal thickening. There is very mild pericolonic stranding adjacent to the thickened segments consistent with nonspecific colitis. No perforation or overt bowel obstruction. No pneumatosis. No free gas. There is likely uterine fibroid disease at its fundus. No acute adnexal abnormality. Liver, gallbladder, bile ducts, spleen, adrenals, pancreas and unobstructed kidneys are normal. IMPRESSION: 1. Pancolitis without obstruction, perforation or abscess. Unremarkable small bowel. 2. Unobstructed urinary tracts with no hepatobiliary abnormality. 3. Probable uterine fibroids with no acute adnexal or urinary bladder pathology. 4. No findings to suggest pyelonephritis or other acute urinary tract pathology. Dictated on workstation # [id number] Dict: 04/26/221933 Trans: 04/26/221941 [id number] Interpreted by: GALLO ROLDAN Assessment/Plan Assessment/Plan Assessment/Plan Pancolitis UTI with hematuria Uterine Fibroids I am not convinced pt's pain is from her colon. I reviewed the CT, spoke with Hospitalist and the ED physician. I think it is more likely that the UTI is causing her abdominal pain, along with her very large uterus (with possible fibroids). She is having some diarrhea and if this continues would warrant stool cultures for bacteria; however, it is probably more viral. She has not had any melena or hematochezia (which we would see with colitis), but will continue to monitor this. Ok to have clear liquids, pain control, and continue IV ABX. Will monitor pts abdominal exam and labs. RADHA KIRBY DO Apr 27, 2022 13:56
[2022-04-27] MEDS ORDERED: cefTRIAXone 1 GM PRE-MIX 50 ML IV SCH (18:00)
[2022-04-27] MEDS ORDERED: RT-ALBUTEROL SULF 2.5 MG/3 ML PRE-MIX VIAL INH PRN (20:00)
[2022-04-27] MEDS: ENOXAPARIN 40 MG/0.4 ML (LOVENOX) SYR SC SCH (21:01)
[2022-04-28 03:41] VITALS: BP 88/51
[2022-04-28] MEDS: IBUPROFEN 600 MG (MOTRIN) TAB PO SCH ×3 (04:51→14:12)
[2022-04-28] MEDS: metroNIDAZOLE 500MG/100ML IVPB 100 ML IV SCH ×2 (04:51→14:12)
[2022-04-28] MEDS: NS W/KCL 20 MEQ/L 1,000 ML IV SCH (04:51)
[2022-04-28 05:48] LABS: EOSINOPHILS % (AUTO) 0 % (0-10)
[2022-04-28 05:50] LABS: BASOPHILS % (AUTO) 0 % (0-10); HEMATOCRIT 31 % (35-52); HEMOGLOBIN 10.2 g/dL (11.5-16.0); LYMPHOCYTES # (AUTO) 0.6 10^3/uL (1.0-4.0); LYMPHOCYTES % (AUTO) 13 % (12-44); MEAN CORPUSCULAR HEMOGLOBIN 30 pg (25-34); MEAN CORPUSCULAR HGB CONC 33 g/dL (32-36); MEAN CORPUSCULAR VOLUME 92 fL (80-99); MEAN PLATELET VOLUME 12.5 fL (9.0-12.2); MONOCYTES # (AUTO) 0.3 10^3/uL (0.0-1.0); MONOCYTES % (AUTO) 7 % (0-12); NEUTROPHILS # (AUTO) 3.8 10^3/uL (1.8-7.8); NEUTROPHILS % (AUTO) 79 % (42-75); PLATELET COUNT 111 10^3/uL (130-400); WHITE BLOOD COUNT 4.8 10^3/uL (4.3-11.0)
[2022-04-28 06:22] LABS: ALBUMIN 2.7 GM/DL (3.2-4.5); BILIRUBIN,TOTAL 0.1 MG/DL (0.1-1.0); CALCIUM 7.8 MG/DL (8.5-10.1); CREATININE SERUM 0.57 MG/DL (0.60-1.30); POTASSIUM 3.5 MMOL/L (3.6-5.0); TOTAL PROTEIN 5.1 GM/DL (6.4-8.2)
--- NOTE | 2022-04-28 07:34 | Progress Note - Hospitalist ---
Subjective HPI/CC On Admission Date Seen by Provider: Apr 28, 2022 Time Seen by Provider: 11:00 Chief complaint: UTI with abdominal pain HPI: This is a 46-year-old female who speaks only Filipino and I communicate via medical Filipino who presented to the ER with fever and abdominal pain found to have colitis on CT scan but no bowel changes only fever and nausea. She was diagnosed with sepsis placed on IV fluids and Dr. Cruz was consulted. Patient reports pain but no nausea at this current time and her white blood cell count is normal. Focused Exam Lactate Level 04/26/22 17:36: Lactic Acid Level 1.33 Time of Focused Exam: 19:45 Objective Exam Vital Signs Vital Signs Date Time Temp Pulse Resp B/P (MAP) Pulse Ox O2 Delivery O2 Flow Rate FiO2 04/28/22 08:00 97 Room Air 0.00 04/28/22 07:35 36.3 70 18 84/53 (63) 04/27/22 19:17 21 Capillary Refill : Less Than 3 Seconds Results/Procedures Lab Laboratory Tests 04/28/22 05:20 Patient resulted labs reviewed. WILLY MENDES DO Apr 28, 2022 07:34
[2022-04-28 07:35] VITALS: BP 84/53
[2022-04-28] MEDS: DOCUSATE SODIUM 100 MG (COLACE) CAP PO SCH (08:33)
[2022-04-28] MEDS: PANTOPRAZOLE 40 MG (PROTONIX) VIAL IV SCH (08:33)
[2022-04-28] MEDS: SENNOSIDES 8.6 MG (SENOKOT) TAB PO SCH (08:33)
--- NOTE | 2022-04-28 09:39 | Progress Note - Surgery ---
AMRIK PAZ 04/28/22 0939: Subjective Date Seen by a Provider: Apr 28, 2022 Time Seen by a Provider: 09:34 Subjective/Events-last exam Patient is a 46 yo F, who presented with severe abdominal pain and possible porter- colitis. For this reason surgery was consulted. The patient states that her abd ominal pain has improved since yesterday. Still around a five of ten, localized to the suprapubic area but sometimes radiates up her abdomen, intermittent and sharp in character. She was nauseous and vomiting yesterday, indicates mild headache, lightheaded, chills, but does not feel feverish. She indicates diarrhea for the past two days. She denies painful urination and heartburn. Review of Systems General: Chills; No Night Sweats; Fatigue HEENT: Head Aches (Mild); No Sore Throat Pulmonary: Dyspnea (intermittent SOB), Cough Cardiovascular: Lt Headedness; No: Chest Pain Gastrointestinal: Nausea, Vomiting, Abdominal Pain (Suprapubic that radiates up), Diarrhea (Multiple bouts for the past two days), Hematochezia (Possible hematochezia but she is unsure whether it was from the stool or urine) Genitourinary: No Dysuria; Frequency, Hematuria Neurological: Weakness (Generalized); No: Confusion Focused Exam Sepsis Stage: Ruled Out (Patient is not tachycardic, tachypneic, white count is within normal ranges, temperature is between 36 and 38. E. coli cultured in urine but infection is likely relegated to the urinary tract) Reason for ruling out sepsis: Patient does not meet SIRS criteria for sepsis diagnosis. Lactate Level 04/26/22 17:36: Lactic Acid Level 1.33 Time of Focused Exam: 19:45 Objective Exam Vital Signs Date Time Temp Pulse Resp B/P (MAP) Pulse Ox O2 Delivery O2 Flow Rate FiO2 04/28/22 07:35 36.3 70 18 84/53 (63) 97 Room Air 04/28/22 03:41 36.4 53 16 88/51 (63) 98 Room Air 0.00 0.00 04/27/22 23:15 36.2 66 16 90/55 (67) 96 Room Air 0.00 0.00 04/27/22 20:00 96 Room Air 04/27/22 19:17 36.5 75 95 21 04/27/22 19:17 95 Room Air 0.00 04/27/22 19:12 36.5 71 16 89/53 (65) 97 Room Air 04/27/22 15:21 36.5 78 18 91/52 (65) 100 Room Air 04/27/22 12:00 36.7 75 20 101/55 (70) 97 Room Air I & O 04/28/22 07:00 Intake Total 2320 ml Balance 2320 ml Capillary Refill : Less Than 3 Seconds General Appearance: No Apparent Distress, Anxious HEENT: PERRL/EOMI, Moist Mucous Membranes Neck: Non Tender, Supple; No Carotid Bruit, No Lymphadenopathy (L), No Lymphadenopathy (R), No Thyromegaly Respiratory: Chest Non Tender, Lungs Clear, Normal Breath Sounds, No Accessory Muscle Use, No Respiratory Distress, Wheezing (Upper airway wheeze, not heard in auscultation of the lungs) Cardiovascular: Regular Rate, Rhythm, No Edema, No Gallop, No Murmur, Normal Peripheral Pulses Peripheral Pulses: 2+ Dorsalis Pedis (R), 2+ Left Dors-Pedis (L), 2+ Radial Pulses (R), 2+ Radial Pulses (L) Gastrointestinal: soft, no organomegaly; No distended, No guarding; tenderness (to palpation, mostly lower abdomen), hernia (umbilical ) Extremity: Normal Capillary Refill, Non Tender, No Calf Tenderness, No Pedal Edema; No Calf Tenderness Neurologic/Psychiatric: Alert, Oriented x3 Skin: Normal Color, Warm/Dry; No Jaundice Lymphatic: No Adenopathy Results Lab Laboratory Tests 04/28/22 05:20: White Blood Count 4.8, Red Blood Count 3.38L, Hemoglobin 10.2L, Hematocrit 31L, Mean Corpuscular Volume 92, Mean Corpuscular Hemoglobin 30, Mean Corpuscular Hemoglobin Concent 33, Red Cell Distribution Width 13.2, Platelet Count 111L, Mean Platelet Volume 12.5H, Immature Granulocyte % (Auto) 1, Neutrophils (%) (Auto) 79H, Lymphocytes (%) (Auto) 13, Monocytes (%) (Auto) 7, Eosinophils (%) (Auto) 0, Basophils (%) (Auto) 0, Neutrophils # (Auto) 3.8, Lymphocytes # (Auto) 0.6L, Monocytes # (Auto) 0.3, Eosinophils # (Auto) 0.0, Basophils # (Auto) 0.0, Immature Granulocyte # (Auto) 0.0, Percent Immature Platelet Fraction 7.1, Sodium Level 137, Potassium Level 3.5L, Chloride Level 111H, Carbon Dioxide Level 19L, Anion Gap 7, Blood Urea Nitrogen 3L, Creatinine 0.57L, Estimat Glomerular Filtration Rate 112, BUN/Creatinine Ratio 5, Glucose Level 85, Calcium Level 7.8L, Corrected Calcium 8.8, Total Bilirubin 0.1, Aspartate Amino Transf (AST/SGOT) 24, Alanine Aminotransferase (ALT/SGPT) 17, Alkaline Phosphata se 62, Total Protein 5.1L, Albumin 2.7L Microbiology 04/26/22 Blood Culture - Preliminary, Resulted No growth 04/26/22 Urine Culture - Preliminary, Resulted Escherichia coli Assessment/Plan Assessment/Plan Assessment/Plan Pancolitis UTI with hematuria Uterine Fibroids Pancolitis is unlikely considering the previous CT of the abdomen. A UTI is a more likely cause of her pain and hematuria, along with her very large uterus (with possible fibroids). She is having some diarrhea and if this continues it would warrant stool cultures for bacteria; however, it is probably more viral. It is possible that she had an episode of hematochezia but the patient and her daughter were unsure whether or not this was from the stool or urine. Ok to have clear liquids, pain control, and continue IV ABX. Will monitor pts abdominal exam and labs. JAIME CRUZ DO 04/28/22 1403: Subjective Time Seen by a Provider: 11:47 Subjective/Events-last exam Pt seen and examined, states she is doing better today and tolerated clears. Daughter is in room translating and states that there was some blood in toilet yesterday, but nothing today. She does want to eat and go home today. Review of Systems General: Chills; No Night Sweats; Fatigue HEENT: Head Aches (Mild) Pulmonary: Dyspnea (intermittent SOB), Cough Cardiovascular: Lt Headedness; No: Chest Pain Gastrointestinal: Nausea, Vomiting, Abdominal Pain (Suprapubic that radiates up), Diarrhea (Multiple bouts for the past two days), Hematochezia (Possible hematochezia but she is unsure whether it was from the stool or urine) Genitourinary: No Dysuria; Frequency, Hematuria Objective Exam General Appearance: No Apparent Distress, Anxious HEENT: PERRL/EOMI Respiratory: Chest Non Tender, No Accessory Muscle Use, No Respiratory Distress, Wheezing (Upper airway wheeze) Gastrointestinal: soft, no organomegaly; No distended; tenderness (to palpation, mostly lower abdomen), hernia (umbilical ) Extremity: Normal Capillary Refill, Non Tender, No Calf Tenderness, No Pedal Edema Assessment/Plan Assessment/Plan Assessment/Plan Pancolitis UTI with hematuria Uterine Fibroids Pancolitis is unlikely considering the previous CT of the abdomen. A UTI is a more likely cause of her pain and hematuria, along with her very large uterus (with possible fibroids). She is having some diarrhea and if this continues it would warrant stool cultures for bacteria; however, it is probably more viral. It is possible that she had an episode of hematochezia but the patient and her daughter were unsure whether or not this was from the stool or urine. Ok to have clear liquids, pain control, and continue IV ABX. Will monitor pts abdominal exam and labs. Supervisory-Addendum Brief Verification & Attestation Participated in pt care: history, MDM, physical Personally performed: exam, history, MDM, supervision of care Care discussed with: Medical Student Procedures: n/a Verification and Attestation of Medical Student E/M Service A medical student performed and documented this service. I then reviewed and verified all information documented by the medical student and made modifications to such information, when appropriate. I personally performed a physical exam, medical decision making and then discussed any differences between the notes and made revisions as necessary to create one note. Jaime Cruz , 04/28/22 , 14:08 AMRIK PAZ Apr 28, 2022 09:39 JAIME CRUZ DO Apr 28, 2022 14:03
[2022-04-28] MEDS ORDERED: AMOX1TAB12 PO (11:41)
[2022-04-28] MEDS ORDERED: ONDA4TAB11 SL (11:41)
[2022-04-28] MEDS ORDERED: ACHD5005 PO (11:41)
--- NOTE | 2022-04-28 11:43 | Discharge Summary ---
Discharge Summary Hospital Course Was the Problem List Reviewed?: Yes Problems/Dx: (1) Sepsis Status: Acute Qualifiers: Qualified Codes: A41.9 - Sepsis, unspecified organism (2) Pyelonephritis Status: Acute (3) Abdominal pain Status: Acute Qualifiers: Qualified Codes: R10.84 - Generalized abdominal pain (4) Hypokalemia Status: Acute (5) Hyponatremia Status: Acute Hospital Course Date of Admission: Apr 27, 2022 at 14:54 Admission Diagnosis : Family Physician/Provider: [facility] Date of Discharge: 04/28/22 Discharge Diagnosis: [ ] Hospital Course: Patient had a short hospital course after she was admitted for sepsis and pyelonephritis. Colitis on CT scan was evaluated by Dr. Cruz and no acute issues were assessed from that standpoint. Overall she did very well she responded to IV antibiotics she was placed on Omnicef empirically and will be seen in the clinic this week. Labs and Pending Lab Test: Laboratory Tests 04/28/22 05:20: White Blood Count 4.8, Red Blood Count 3.38L, Hemoglobin 10.2L, Hematocrit 31L, Mean Corpuscular Volume 92, Mean Corpuscular Hemoglobin 30, Mean Corpuscular Hemoglobin Concent 33, Red Cell Distribution Width 13.2, Platelet Count 111L, Mean Platelet Volume 12.5H, Immature Granulocyte % (Auto) 1, Neutrophils (%) (Auto) 79H, Lymphocytes (%) (Auto) 13, Monocytes (%) (Auto) 7, Eosinophils (%) (Auto) 0, Basophils (%) (Auto) 0, Neutrophils # (Auto) 3.8, Lymphocytes # (Auto) 0.6L, Monocytes # (Auto) 0.3, Eosinophils # (Auto) 0.0, Basophils # (Auto) 0.0, Immature Granulocyte # (Auto) 0.0, Percent Immature Platelet Fraction 7.1, Sodium Level 137, Potassium Level 3.5L, Chloride Level 111H, Carbon Dioxide Level 19L, Anion Gap 7, Blood Urea Nitrogen 3L, Creatinine 0.57L, Estimat Glomerular Filtration Rate 112, BUN/Creatinine Ratio 5, Glucose Level 85, Calcium Level 7.8L, Corrected Calcium 8.8, Total Bilirubin 0.1, Aspartate Amino Transf (AST/SGOT) 24, Alanine Aminotransferase (ALT/SGPT) 17, Alkaline Phosphatase 62, Total Protein 5.1L, Albumin 2.7L Microbiology 04/26/22 Blood Culture - Preliminary, Resulted No growth 04/26/22 Urine Culture - Preliminary, Resulted Escherichia coli Home Meds Active Ondansetron Odt (Ondansetron) 4 Mg Tab.rapdis 4 Mg SL Q4H PRN Hydrocodone-Acetamin 5-325 mg (Hydrocodone/Acetaminophen) 5 Mg-325 Mg Tablet 1 Tab PO Q6H PRN Amox Tr-K Clv 875-125 mg Tab (Amoxicillin/Potassium Clav) 875 Mg-125 Mg Tablet 1 Each PO BID Assessment/Pt Instructions PCP this week Discharge Planning: <30 minutes discharge planning Discharge Instructions Discharge Diet: Soft Diet Discharge Physical Examination Vital Signs Vital Signs Date Time Temp Pulse Resp B/P (MAP) Pulse Ox O2 Delivery O2 Flow Rate FiO2 04/28/22 08:00 97 Room Air 0.00 04/28/22 07:35 36.3 70 18 84/53 (63) 04/27/22 19:17 21 General Appearance: No Apparent Distress, WD/WN, Chronically ill Respiratory: Lungs Clear, Normal Breath Sounds Cardiovascular: Regular Rate, Rhythm Neurologic/Psychiatric: Alert, Oriented x3, Depressed Affect Allergies: Coded Allergies: No Known Drug Allergies (Unverified , 04/26/22) Discharge Summary Date of Admission Apr 27, 2022 at 14:54 Date of Discharge Discharge Date: Apr 28, 2022 Admission Diagnosis Assessment: Sepsis Pyelonephritis Colitis on CT consulted Dr. Cruz Abdominal pain Hypokalemia Plan: Pain control IV antibiotics WILLY MENDES DO Apr 28, 2022 11:43
[2022-04-28 11:45] VITALS: BP 88/64
[2022-04-28 15:00] VITALS: BP 88/64
[2022-04-28 15:29] VITALS: BP 114/77
== END 2022-04-28 15:15 | disposition home or self-care (01) | DRG 872 ==
LOC: ER 16:50 → 4TH 19:51 → OBSVTOIN 04-27 14:54
PROVIDERS: ADMIT Internal Medicine; ATTEND Internal Medicine
DX: A41.9 Sepsis, unspecified organism (principal); N10 Acute pyelonephritis; E87.1 Hypo-osmolality and hyponatremia; K52.9 Noninfective gastroenteritis and colitis, unspecified; E87.6 Hypokalemia; E03.9 Hypothyroidism, unspecified; D25.9 Leiomyoma of uterus, unspecified; Z20.822 Contact with and (suspected) exposure to COVID-19
CPT/HCPCS: 36415; 71045; 74177; 80053; 81000; 83605; 83690; 83735; 85007; 85025; 85027; 85610; 85730; 86141; 87040; 87077; 87088; 87186; 87636; 94760; G0378